=== PATIENT | female | born 1990 | race Caucasian/White ===

== ENCOUNTER 2017-07-05 18:42 | Emergency (ER) | payer OTHER ==
[2017-07-05 18:49] VITALS: BP 123/73; BMI 30.1
[2017-07-05 19:15] LABS: BILIRUBIN,URINE NEGATIVE (NEGATIVE); BLOOD/HEMOGLOBIN,URINE NEGATIVE (NEGATIVE); GLUCOSE, URINE NEGATIVE (NEGATIVE); KETONES,URINE NEGATIVE (NEGATIVE); LEUKOCYTE ESTERASE ,URINE 1+ (NEGATIVE); NITRITES,URINE NEGATIVE (NEGATIVE); PROTEIN,URINE NEGATIVE (NEGATIVE); UROBILINOGEN,URINE NORMAL (NORMAL)
[2017-07-05 19:17] LABS: APPEARANCE,URINE HAZY (CLEAR); COLOR,URINE YELLOW (YELLOW)
[2017-07-05 19:22] LABS: BACTERIA,URINE TRACE /HPF (NEGATIVE); RBC,URINE 0-2 /HPF (NONE SEEN); SQUAMOUS EPITHELIAL CELL,UR FEW /HPF (NEGATIVE)
--- NOTE | 2017-07-05 19:42 | DR.GENAD ---
HPI - PCP Primary Care Physician: NFD - Complaint/Symptoms Chief Complaint Doctors Comments: This is a 26 y/o single female LMP middle of the month of May. She states that she had three posivite test. On yesterday she had a gush of blood. Today she complains of abdominal pain. 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 Chief Complaint:: PT STATES" T TOOK 3 HOME TEST I CAN'T BE BUT 3 OR 4 WEEKS BUT I'M HAVING STOMACH AND BACK PAIN FOR 2 DAYS. I HAD A GUSH OF BLOOD COME OUT OF ME LAST NIGHT, BUT NO CLOTS" - Source History Provided: Patient - Mode of Arrival Mode of Arrival: Ambulatory - Timing Onset of Chief Complaint: 07/04/17 PMH - PMH Past Medical History: No Past Surgical History: No - Family History History of Family Medical Conditions: No - Social History Does any household member use tobacco: Yes Alcohol Use: None Do you use any recreational Drugs:: No Lives With: Family Lives Where: Home - infectious screening In the last 2 months have you had wt loss of >10#?: NO Have you had fever, night sweats or hemotysis?: No Have you traveled outside the country in the last 6 months?: No Isolation: Standard ROS - Review of Systems Eyes: No Symptoms Reported ENTM: No Symptoms Reported Respiratoy: No Symptoms Reported Cardiovascular: No Symptoms Reported Gastrointestinal/Abdominal: No Symptoms Reported Genitourinary: No Symptoms Reported Neurological: No Symptoms Reported Musculoskeletal: No Symptoms Reported Integumentary: No Symptoms Reported Hematologic/Lymphatic: No Symptoms Reported Endocrine: No Symptoms Reported Psychiatric: No Symptoms Reported All Other Systems: Reviewed and Negative PE - Vital Signs Vitals: Temperature 99.2 F Pulse Rate 88 Respiratory Rate 18 Blood Pressure 123/73 O2 Sat by Pulse Oximetry 100 - General Limitations: No Limitations General Appearance: Alert, In No Apparent Distress - Head Head Exam: Normal Inspection, Atraumatic - Eyes Eye exam: Normal Appearance, PERRL, EOMI - ENT ENT Exam: Normal Exam External Ear Exam: Normal External Inspection TM/Canal Exam: Bilateral Normal Nose Exam: Normal Nose Exam Mouth Exam: Normal Inspection Throat Exam: Normal Inspection - Neck Neck Exam: Normal Inspection, Full ROM - Chest Chest Inspection: Normal Inspection - Respiratory Respiratory Exam: Normal Lung Sounds Bilat Respiratory Exam: Bilateral Clear to Auscultation - Cardiovascular Cardiovascular Exam: Regular Rate, Normal Rhythm - Abdominal Exam Abdominal Exam: Normal Inspection, Normal Bowel Sounds Abdominal Tenderness: negative: RUQ, RLQ, LUQ, LLQ, Epigastrium, Suprapubic, Diffuse, Mild, Moderate, Severe, Other - Extremities Extremities Exam: Normal Inspection - Back Back Exam: Normal Inspection - Neurologic Neurological Exam: Alert, Oriented X3, CN II-XII Intact - Psychiatric Psychiatric Exam: Normal Affect - Skin Skin Exam: Warm, Dry, Intact Course - Reevaluation 1st: Improved - Education/Counseling Educated On: Treatment, Diagnosis, Needs for Follow Up ROR - Labs Reviewed Laboratory: HCG, Quant 41056 mIU/mL (0-6) H 07/05/17 19:33 Specimen Type Clean catch urine 07/05/17 19:09 Urine Color Yellow (YELLOW) 07/05/17 19:09 Urine Appearance Hazy (CLEAR) 07/05/17 19:09 Urine pH 7.0 (5.0 - 8.0) 07/05/17 19:09 Ur Specific Mobile 1.010 (1.000-1.030) 07/05/17 19:09 Urine Protein Negative (NEGATIVE) 07/05/17 19:09 Urine Glucose (UA) Negative (NEGATIVE) 07/05/17 19:09 Urine Ketones Negative (NEGATIVE) 07/05/17 19:09 Urine Occult Blood Negative (NEGATIVE) 07/05/17 19:09 Urine Nitrite Negative (NEGATIVE) 07/05/17 19:09 Urine Bilirubin Negative (NEGATIVE) 07/05/17 19:09 Urine Urobilinogen Normal (NORMAL) 07/05/17 19:09 Ur Leukocyte Esterase 1+ (NEGATIVE) 07/05/17 19:09 Urine RBC 0-2 /HPF (NONE SEEN) 07/05/17 19:09 Urine WBC 3-5 /HPF (NONE SEEN) 07/05/17 19:09 Ur Squamous Epith Cells Few /HPF (NEGATIVE) 07/05/17 19:09 Urine Bacteria Trace /HPF (NEGATIVE) 07/05/17 19:09 Ur Culture Indicated? No/not indicated 07/05/17 19:09 - XRAY XRAY Interpreted by: Radiologist (Single living fetus. The visualized yolk sac appears normal. The right oveary appears normal. The left ovary was not well seen. LMP: quantitative beta HCG dated july Impression: Single living fetus at 6 weeks 3 days by ultrasound. Likely small suchorionic hemorrhage.) - Diagnosis Discharge Problem: Single living fetus 6 weeks 3 days - Discharge Plan Condition: Stable - Follow ups/Referrals Follow ups/Referrals: NFD,None [Primary Care Provider] - 3 days - Instructions
--- NOTE | 2017-07-05 21:32 | US ---
History: Vaginal bleeding. Study: First trimester ultrasound. Comparison: None. Technique: Transabdominal and endovaginal pelvic ultrasound. Findings: LMP: Unsure. Quantitative beta HC,228 dated July 05, 2017. Single living fetus. The visualized yolk sac appears normal. The right ovary appears normal. The left ovary was not well seen. AUA: 6 weeks 3 days. MASHA: February 25, 2018. FHR: 163 bpm. CRL 0.5 cm corresponding to 6 weeks 2 days. No significant free fluid is seen. Likely small subchorionic hemorrhage. Impression: 1. Single living fetus at 6 weeks 3 days by ultrasound. 2. Likely small subchorionic hemorrhage.. Reported By:
== END 2017-07-05 21:50 | disposition home or self-care (01) ==
LOC: ER 18:57
DX: R10.84 Generalized abdominal pain (principal); Z3A.01 Less than 8 weeks gestation of pregnancy
CPT/HCPCS: 36415; 76801; 81001; 84702; 99284